=== PATIENT | female | born 1965 ===

== ENCOUNTER 2025-03-19 10:13 | Inpatient (IN) | payer OTHER ==
[2025-03-19] MEDS ORDERED: ACETAMINOPHEN INJECTION 100 ML ONE (11:33)
[2025-03-19] MEDS ORDERED: LIDOCAINE 4% PATCH TP ONE (11:33)
[2025-03-19] MEDS ORDERED: FAMOTIDINE 20 MG TABLET ONE (12:08)
[2025-03-19] MEDS ORDERED: MAG HYDROX/AL HYDROX/SIMETH 30 ML UNIT-DOSE CUP ONE (12:08)
[2025-03-19] MEDS: ACETAMINOPHEN 1000 MG/100 ML BAG IVPB ONE (12:08)
[2025-03-19] MEDS: MAG HYDROX/AL HYDROX/SIMETH 30 ML UNIT-DOSE CUP PO ONE (12:09)
[2025-03-19] MEDS: LIDOCAINE 5% TOPICAL PATCH TP ONE (12:09)
[2025-03-19] MEDS: FAMOTIDINE 20 MG TABLET PO ONE (12:09)
[2025-03-19 12:35] LABS: ABSOLUTE IMMATURE GRANULOCYTES 0.01 x10^3/uL (0.0-0.031); BASOPHILS # 0.01 x10^3/uL (0.01-0.08); EOSINOPHIL % 3.6 % (0.7-5.8); EOSINOPHILS # 0.19 x10^3/uL (0.04-0.36); MCHC 31.6 g/dl (32.2-35.5); MEAN CELL VOLUME 88.9 fl (79.4-94.8); MEAN PLT VOLUME 9.7 fl (9.4-12.3); MONOCYTE # 0.39 x10^3/uL (0.24-0.86); MONOCYTE % 7.3 % (4.7-12.5); RDW 17.5 % (12.3-16.6)
[2025-03-19 12:49] LABS: ACTIVATED PTT 32.3 SECONDS (25.2-36.5); INR 1.1 (0.83-1.09); PROTHROMBIN TIME (PATIENT) 12.0 SEC (9.7-13.0)
[2025-03-19 13:08] LABS: GLUCOSE,RANDOM 88.0 mg/dL (74-106)
[2025-03-19 13:09] LABS: TOT PROT 6.5 g/dl (6.4-8.2)
[2025-03-19 13:10] LABS: CO2 26.0 mmol/L (21-32)
[2025-03-19 13:11] LABS: ALK PHOS 95.0 U/L (40-150)
[2025-03-19 13:14] LABS: CREATININE 0.44 mg/dL (0.55-1.3); SGOT/AST 20.0 U/L (5-34); SGPT/ALT 24.0 U/L (0-55)
[2025-03-19 13:23] LABS: N-TERMINAL BNP 64.1 pg/mL (0-299.9)
[2025-03-19] MEDS ORDERED: ACETAMINOPHEN 500 MG TABLET (FP) ONE (13:50)
[2025-03-19] MEDS ORDERED: POTASSIUM CHLORIDE TABS 20 MEQ TABLET.ER (FP) PO ONE (15:10)
[2025-03-19] MEDS: POTASSIUM CHLORIDE TABS 20 MEQ TABLET.ER (FP) PO ONE (15:21)
[2025-03-19] MEDS ORDERED: HEPARIN NA (PORCINE) 5,000 UNITS/ML 1ML VIAL ONE (15:52)
[2025-03-19] MEDS ORDERED: HEPARIN NA (PORCINE) 5,000 UNITS/ML 1ML VIAL IVPUSH PRN ×2 (16:00)
[2025-03-19] MEDS ORDERED: MORPHINE SULFATE 2 MG/ML SYRINGE ONE (16:25)
[2025-03-19] MEDS: HEPARIN NA (PORCINE) 5,000 UNITS/ML 1ML VIAL IVPUSH ONE (16:35)
[2025-03-19] MEDS: HEPARIN - 25,000 UNIT in SODIUM CHLORIDE 495 ML IV SCH (16:35)
[2025-03-19] MEDS: morphine CARPU-JECT 2 MG/1 ML DISP.SYRIN IVPUSH ONE (16:37)
[2025-03-19] MEDS: HEPARIN NA (PORCINE) 5,000 UNITS/ML 1ML VIAL SQ ONE (16:40)
[2025-03-19] MEDS: LACTATED RINGERS SOLUTION 1000 ML INFUS.BAG IV ONE (16:40)
[2025-03-19 17:33] LABS: URINE APPEARANCE CLEAR; URINE COLOR YELLOW
[2025-03-19 17:34] LABS: URINE BILIRUBIN NEGATIVE (NEGATIVE); URINE GLUCOSE (UA) NEGATIVE (NEGATIVE); URINE KETONE NEGATIVE (NEGATIVE); URINE PROTEIN NEGATIVE (NEGATIVE)
[2025-03-19 17:35] LABS: EPI CELLS 40 /uL (0-25.1); URINE LEUK ESTERASE NEGATIVE (NEGATIVE); URINE NITRITE NEGATIVE (NEGATIVE); URINE RBC 11 /uL (0-23.9); URINE UROBILINOGEN 0.2 mg/dL (0.2-1.0); URINE WBC 33 /uL (0-25.8)
[2025-03-19 17:36] LABS: HYALINE CASTS NONE SEEN /uL (0-3.1); URINE BACTERIA 84 /uL (0-1359)
[2025-03-19] MEDS ORDERED: ACETAMINOPHEN 1000 MG/100 ML BAG IVPB PRN (19:07)
[2025-03-19] MEDS ORDERED: morphine CARPU-JECT 2 MG/1 ML DISP.SYRIN IVPUSH PRN (19:08)
[2025-03-19 20:03] VITALS: BMI 26.0
[2025-03-19] MEDS: morphine SO4 SUSTAINED ACTING 15 MG TABLET.SA PO SCH (22:13)
[2025-03-19] MEDS: PANTOPRAZOLE 40 MG TABLET PO SCH (22:13)
[2025-03-19] MEDS: BENZONATATE 200 MG CAPSULE PO SCH (22:14)
[2025-03-19] MEDS: LIDOCAINE PATCH REMOVAL MC SCH (22:14)
[2025-03-19] MEDS: NITROFURANTOIN MONOHYD/M-CRYST 100 MG CAPSULE PO SCH (22:14)
[2025-03-20 07:40] LABS: MCHC 30.9 g/dl (32.2-35.5); MEAN CELL VOLUME 89.9 fl (79.4-94.8); MEAN PLT VOLUME 8.6 fl (9.4-12.3); RDW 17.2 % (12.3-16.6)
[2025-03-20 08:25] LABS: GLUCOSE,RANDOM 110.0 mg/dL (74-106); TOT PROT 5.9 g/dl (6.4-8.2)
[2025-03-20 08:26] LABS: CO2 27.0 mmol/L (21-32)
[2025-03-20 08:28] LABS: ALK PHOS 85.0 U/L (40-150)
[2025-03-20 08:31] LABS: CREATININE 0.45 mg/dL (0.55-1.3); SGOT/AST 17.0 U/L (5-34); SGPT/ALT 18.0 U/L (0-55)
[2025-03-20] MEDS: NICOTINE 7 MG/24 HOURS TOPICAL PATCH TD SCH (09:39)
[2025-03-20] MEDS: POTASSIUM CHLORIDE TABS 20 MEQ TABLET.ER (FP) PO ONE (13:19)
[2025-03-21] MEDS: NICOTINE POLACRILEX 2 MG GUM BUC PRN (03:38)
[2025-03-21 09:02] LABS: GLUCOSE,RANDOM 101.0 mg/dL (74-106)
[2025-03-21 09:03] LABS: CO2 25.0 mmol/L (21-32)
[2025-03-21 09:08] LABS: CREATININE 0.45 mg/dL (0.55-1.3)
[2025-03-21] MEDS: ENOXAPARIN NA (PORCINE) 40 MG/0.4 ML DISP.SYRIN SQ ONE ×2 (09:57→13:51)
[2025-03-21] MEDS: ENOXAPARIN NA (PORCINE) 30 MG/0.3 ML DISP.SYRIN SQ ONE (12:33)
[2025-03-21] MEDS ORDERED: ENOXAPARIN NA (PORCINE) 30 MG/0.3 ML DISP.SYRIN SQ ONE (13:00)
[2025-03-21 15:19] VITALS: BP 103/61; PULSE 82; RESP 18; TEMP 97.3
[2025-03-21] MEDS ORDERED: ENOXAPARIN NA (PORCINE) 100 MG/1 ML DISP.SYRIN SQ SCH (22:00)
== END 2025-03-21 17:46 | disposition home or self-care (01) | DRG 176 ==
LOC: JER 10:13 → JERBED 15:41 → OBSVTOIN 17:06 → J4S 19:48
PROVIDERS: ADMIT Student in an Organized Health Care Education/Training Program; ATTEND Student in an Organized Health Care Education/Training Program
DX: I26.99 Other pulmonary embolism without acute cor pulmonale (principal); I82.4Z2 Acute embolism and thrombosis of unspecified deep veins of left distal lower extremity; C34.90 Malignant neoplasm of unspecified part of unspecified bronchus or lung; C79.31 Secondary malignant neoplasm of brain; F41.9 Anxiety disorder, unspecified; E87.6 Hypokalemia; F17.210 Nicotine dependence, cigarettes, uncomplicated
CPT/HCPCS: 36415; 70450-TC; 71045-TC-FY; 71275-TC; 76937; 80048; 80053; 81003; 83605; 83735; 83880; 84100; 84484; 85025; 85027; 85610; 85730; 86850; 86900; 86901; 87040; 87077; 87086; 87637-QW; 93005; 93010; 93306-TC; 93970-TC; 97116-GP; 97161-GP; 99285-25; G0378